=== PATIENT | female | born 1950 | race Caucasian/White ===

== ENCOUNTER → 2019-10-01 | Outpatient (CLI) | payer MEDICARE, OTHER ==
[~2019-10-01] MED LIST: CIPRO 500MG TA500 MG PO; LIPITOR 10MG10 MG PO; MULTI VITAMINS1 TAB PO; NORCO 325 MG-51 TAB PO; PERCOCET 325 MG1 TA2 PO; ULTRAM 50MG TAB50 MG PO; ZOFRAN ODT8 MG PO
== END ==
LOC: COL.RAD 08:59
DX: C50.912 Malignant neoplasm of unspecified site of left female breast (principal)
CPT/HCPCS: A9503